=== PATIENT | male | born 1965 | race Caucasian/White ===

== ENCOUNTER 2017-01-10 19:06 | Emergency (ER) | payer OTHER ==
[~2017-01-10] VITALS: Ht 195.6 cm; Wt 105.4 kg
[2017-01-10] MEDS ORDERED: FLUTICASONE PRO16 GM BOTH NARES (19:26)
[2017-01-10] MEDS ORDERED: CRESTOR20 MG PO (19:26)
[2017-01-10] MEDS ORDERED: CYCLOBENZAPRINE10 MG PO (19:27)
[2017-01-10] MEDS ORDERED: LISINOPRIL40 MG PO (19:27)
[2017-01-10 19:33] LABS: POINT-OF-CARE METER ID UU13113747
[2017-01-10 20:25] VITALS: BP 136/81
== END 2017-01-10 20:26 | disposition home or self-care (01) ==
LOC: EME → TRA 19:06 → EME 19:06 → EDBD 19:06 → TRA 20:26
PROVIDERS: Emergency Medicine
DX: M54.5 Low back pain (principal); V49.40XA Driver injured in collision with unspecified motor vehicles in traffic accident, initial encounter; Y92.410 Unspecified street and highway as the place of occurrence of the external cause; E78.5 Hyperlipidemia, unspecified; I10 Essential (primary) hypertension; Z88.6 Allergy status to analgesic agent
CPT/HCPCS: 72100; 82948; 99281; 99285; J2405; J3010

== ENCOUNTER 2017-01-22 08:03 | Emergency (ER) | payer OTHER ==
[~2017-01-22] VITALS: Ht 195.6 cm; Wt 107.3 kg
[~2017-01-22 08:03] MED LIST: CRESTOR20 MG PO; CYCLOBENZAPRINE10 MG PO; FLUTICASONE PRO16 GM BOTH NARES; LISINOPRIL40 MG PO
[2017-01-22] MEDS ORDERED: FLEXERIL10 MG PO (10:43)
[2017-01-22] MEDS ORDERED: PERCOCET 5/31 TABLET PO (10:43)
[2017-01-22 10:54] VITALS: BP 149/107
== END 2017-01-22 10:55 | disposition home or self-care (01) ==
LOC: EME 08:03
DX: S39.012A Strain of muscle, fascia and tendon of lower back, initial encounter (principal); V49.9XXA Car occupant (driver) (passenger) injured in unspecified traffic accident, initial encounter
CPT/HCPCS: 99281; 99283; J1885